=== PATIENT | female | born 1995 | race Caucasian/White ===

== ENCOUNTER 2017-03-11 20:12 | Emergency (ER) | payer OTHER ==
[~2017-03-11] VITALS: Ht 175.3 cm; Wt 61.2 kg
[~2017-03-11 20:12] MED LIST: PREDPOW63 PO
[2017-03-11 20:14] VITALS: Ht 175.3 cm; Wt 61.2 kg
[2017-03-11] MEDS ORDERED: ONDANSETRON INJ 2 MG/ML 2 ML VIAL IV STA (21:24)
[2017-03-11] MEDS ORDERED: SODIUM CHLORIDE 0.9% 1000ML 2,000 ML IV STA (21:24)
[2017-03-11] MEDS ORDERED: MoRPHine SULFATE 10 MG/ML CARP/VIAL IV STA (21:24)
[2017-03-11] MEDS ORDERED: ACETAMINOPHEN IV 100 ML IV STA (21:24)
--- NOTE | 2017-03-11 21:27 | EMERGENCY ROOM VISIT NOTE ---
History Report prepared by Celestina: Carolyn Cano Under the Supervision of: Dr. Kiet Bhatti M.D. First contact with patient: 21:18 Chief Complaint: ABDOMINAL PAIN Stated Complaint: PAIN IN LRQ, FEVER, CHILLS Nursing Triage Summary: Patient states "I've been sick for the past couple days with fever, chills, and nausea. I just started getting pains in my lower right abdomen." History of Present Illness The patient is a 21 year old female who presents to the Emergency Room with complaints of intermittent, sharp abdominal pain that started just [employer]. She states this pain is located by her belly button and on the right side of her abdomen. She rates her pain an 8/10 in intensity. The patient notes that she has been sick for the past couple days. Symptoms include fevers, chills, and nausea. Source of History: patient Onset: [employer]PER[employer] Position: abdomen Symptom Intensity: 8/10 Quality: sharp Timing: intermittent Modifying Factors (Relieving): other (None) Associated Symptoms: + chills, + fevers, + nausea Review of Systems See HPI for pertinent positives & negatives. A total of 10 systems reviewed and were otherwise negative. Past Medical & Surgical Medical Problems: (1) No chronic problems Family History No significant family history Social History Smoking Status: Never Smoker Alcohol Use: occasionally Drug Use: none Marital Status: single Housing Status: lives with roommate Occupation Status: [employer] student Current/Historical Medications No Active Prescriptions or Reported Meds Allergies Coded Allergies: Cefprozil (Verified Allergy, Unknown, hives, 03/11/17) Rabbit Epithelium (Verified Allergy, Unknown, ., 03/11/17) Physical Exam Vital Signs Date Time Temp Pulse Resp B/P Pulse Ox O2 Delivery O2 Flow Rate FiO2 03/12/17 01:09 76 16 118/81 96 03/12/17 00:23 37.0 03/12/17 00:00 73 16 117/60 97 Room Air 03/11/17 21:56 107 20 122/68 94 03/11/17 20:14 38.2 135 16 107/72 96 Room Air Physical Exam GENERAL: Patient is dehydrated and uncomfortable appearing. HEENT: No acute trauma, normocephalic atraumatic, mucous membranes dry, no nasal congestion, no scleral icterus. NECK: No stridor, no adenopathy, no meningismus, trachea is midline. LUNGS: No dyspnea. Clear to auscultation and equal bilaterally. No wheeze, no rhonchi. HEART: Regular rate and rhythm. No murmurs, rubs, gallops appreciated. ABDOMEN: Moderate tenderness to palpation of right lower quadrants, mild tenderness over left lower quadrant, hyperactive bowel sounds, no masses appreciated, no peritonitis. BACK: No midline tenderness, no CVA tenderness EXTREMITIES: Normal motion all extremities, no cyanosis, no edema. NEUROLOGIC: Alert and oriented, no acute motor or sensory deficits, no focal weakness, cranial nerves grossly intact. SKIN: No rash, no jaundice, no diaphoresis. Medical Decision & Procedures ER Provider Diagnostic Interpretation: CT results stated below per my review and radiologist interpretation: ABDOMEN AND PELVIS CT WITH IV CONTRAST CT DOSE: 283.72 mGy.cm HISTORY: Right lower quadrant pain. Fever. TECHNIQUE: Multiaxial CT images of the abdomen and pelvis were performed following the use of intravenous contrast. COMPARISON STUDY: None. FINDINGS: The appendix difficult to identify but appears to be located within the right lower quadrant on images 277 through 299. The appendix is small in caliber measuring up to 2 mm. No periappendiceal fat stranding. Trace pelvic free fluid which is likely physiologic. The lung bases are clear. No pneumoperitoneum. No pneumatosis. No fractures within the visualized osseous structures. The liver, gallbladder, spleen, adrenal glands, pancreas, and kidneys are unremarkable. No hydronephrosis. No retroperitoneal lymphadenopathy. The bladder, uterus, and right ovary are unremarkable. There is a 2.3 cm left ovarian cyst. Suboptimal evaluation for bowel pathology due to the lack of oral contrast. However, there is no definite bowel wall thickening or obstruction. A fluid-filled colon. There are few nondilated fluid-filled loops of small bowel within the midabdomen. IMPRESSION: 1. The appendix is difficult to identify but appears to be located within the Laboratory Results 03/11/17 21:35 Red Blood Count 4.40, Mean Corpuscular Volume 93.2, Mean Corpuscular Hemoglobin 31.8, Mean Corpuscular Hemoglobin Concent 34.1, Mean Platelet Volume 9.7, Neutrophils (%) (Auto) 82.7, Lymphocytes (%) (Auto) 7.6, Monocytes (%) (Auto) 9.0, Eosinophils (%) (Auto) 0.0, Basophils (%) (Auto) 0.2, Neutrophils # (Auto) 14.53, Lymphocytes # (Auto) 1.34, Monocytes # (Auto) 1.59, Eosinophils # (Auto) 0.00, Basophils # (Auto) 0.04 03/11/17 21:35 Test 03/11/17 21:15 03/11/17 21:20 03/11/17 21:35 03/11/17 21:41 Urine Color DK YELLOW Urine Appearance CLEAR (CLEAR) Urine pH 5.0 (4.5-7.5) Urine Specific [place] 1.025 (1.000-1.030) Urine Protein 1+ (NEG) Urine Glucose (UA) NEG (NEG) Urine Ketones 1+ (NEG) Urine Occult Blood 3+ (NEG) Urine Nitrite NEG (NEG) Urine Bilirubin NEG (NEG) Urine Urobilinogen NEG (NEG) Urine Leukocyte Esterase TRACE (NEG) Urine WBC (Auto) 5-10 /hpf (0-5) Urine RBC (Auto) 5-10 /hpf (0-4) Urine Hyaline Casts (Auto) 5-10 /lpf (0-5) Urine Epithelial Cells (Auto) >30 /lpf (0-5) Urine Bacteria (Auto) NEG (NEG) Urine Test NEG (NEG) Influenza Type A Antigen Neg for Influ A (NEG) Influenza Type B Antigen Neg for Influ B (NEG) White Blood Count 17.58 K/uL (4.8-10.8) Red Blood Count 4.40 M/uL (4.2-5.4) Hemoglobin 14.0 g/dL (12.0-16.0) Hematocrit 41.0 % (37-47) Mean Corpuscular Volume 93.2 fL (80-100) Mean Corpuscular Hemoglobin 31.8 pg (25-34) Mean Corpuscular Hemoglobin Concent 34.1 g/dl (32-36) Platelet Count 255 K/uL (130-400) Mean Platelet Volume 9.7 fL (7.4-10.4) Neutrophils (%) (Auto) 82.7 % Lymphocytes (%) (Auto) 7.6 % Monocytes (%) (Auto) 9.0 % Eosinophils (%) (Auto) 0.0 % Basophils (%) (Auto) 0.2 % Neutrophils # (Auto) 14.53 K/uL (1.4-6.5) Lymphocytes # (Auto) 1.34 K/uL (1.2-3.4) Monocytes # (Auto) 1.59 K/uL (0.11-0.59) Eosinophils # (Auto) 0.00 K/uL (0-0.5) Basophils # (Auto) 0.04 K/uL (0-0.2) RDW Standard Deviation 43.1 fL (36.4-46.3) RDW Coefficient of Variation 12.6 % (11.5-14.5) Immature Granulocyte % (Auto) 0.5 % Immature Granulocyte # (Auto) 0.08 K/uL (0.00-0.02) Est Creatinine Clear Calc Drug Dose 86.0 ml/min Estimated GFR () 93.3 Estimated GFR (Non- 80.5 BUN/Creatinine Ratio 9.9 (10-20) Calcium Level 9.1 mg/dl (8.5-10.1) Total Bilirubin 0.4 mg/dl (0.2-1) Direct Bilirubin 0.1 mg/dl (0-0.2) Aspartate Amino Transf (AST/SGOT) 16 U/L (15-37) Alanine Aminotransferase (ALT/SGPT) 19 U/L (12-78) Alkaline Phosphatase 78 U/L (45-117) Total Protein 8.8 gm/dl (6.4-8.2) Albumin 3.6 gm/dl (3.4-5.0) Lipase 131 U/L (73-393) Bedside Hemoglobin 14.3 g/dl (12.0-16.0) Bedside Hematocrit 42 % (37-47) Bedside Sodium 135 mEq/L (135-144) Bedside Potassium 3.5 mEq/L (3.3-5.0) Bedside Chloride 96 mEq/L (101-112) Bedside Total CO2 24 mEq/l (24-31) Anion Gap 19.0 mmol/L (16-25) Bedside Blood Urea Nitrogen 10 mg/dl (7-18) Bedside Creatinine 0.9 mg/dl (0.6-1.3) Bedside Glucose (other) 108 mg/dl (70-99) Bedside Ionized Calcium (Anderson) 1.09 mmol/l (1.12-1.32) Laboratory results as reviewed by me. Medications Administered Medications (Trade) Dose Ordered Sig/Carissa Route Start Time Stop Time Status Last Admin Dose Admin Acetaminophen (Ofirmev Iv) 100 ml @ 400 mls/hr NOW STAT IV 03/11/17 21:24 03/11/17 21:38 DC 03/11/17 21:42 400 MLS/HR Ondansetron HCl (Zofran Inj) 4 mg NOW STAT IV 03/11/17 21:24 03/11/17 21:26 DC 03/11/17 21:43 4 MG Morphine Sulfate 6 mg 6 mg NOW STAT IV 03/11/17 21:24 03/11/17 21:26 DC 03/11/17 21:43 6 MG Sodium Chloride (Nss 1000ml) 2,000 ml @ 999 mls/hr Q2H1M STAT IV 03/11/17 21:24 03/11/17 23:24 DC 03/11/17 21:42 999 MLS/HR ED Course 2118: The patient was evaluated in room A4. A complete history and physical exam was performed. 4: Ordered Sodium Chloride 2,000 ml @ 999 mls/hr IV, Morphine Sulfate 6 mg IV , Zofran Injection 4 mg IV, Acetaminophen 100 ml @ 400 mls/hr Protocol IV. 2308: Upon reevaluation, the patient is feeling better. 0045: Ordered Ondansetron HCL 1 homepack PO. 0037: Reevaluated the patient. She feels better and would like to go home. Discussed results and discharge instructions: She verbalized understanding and agreement. The patient is ready for discharge. Medical Decision Differential: Appendicitis, , MSK, Diverticulitis, UTI, Renal Colic, Bowel Obstruction, Aortic Pathology, amongst other pathologies entertained. 21 yr old dehydrated uncomfortable appearing female arrives with nausea, anorexia, fevers, wbc elevation and modest RLQ TTP. Tachycardia likely fever/ dehydration related and improved with antipyretics and fluids. CT done given multiple findings concerning for appendicitis. CT with normal appearance appendix. There is evidence of gastroenteritis without bowel obstruction. Patient feeling vastly improved and looking much better. Abdomen much improved. She does not have surgical abdomen. She is comfortable with discharge. No UTI symptoms and UA clear of infection. Denies vaginal discharge issues and I do not feel this represents PID/TOA. Made clear the plan to RTED in 12-24 hours if worsening/no improvement, earlier if significant worsening. Discussed left ovarian cyst, which I do not believe is the cause of her symptoms. Stable and discharged with roommate. Impression Primary Impression: Right lower quadrant abdominal pain Additional Impressions: Fever Dehydration Ovarian cyst, left Scribe Attestation The scribe's documentation has been prepared under my direction and personally reviewed by me in its entirety. I confirm that the note above accurately reflects all work, treatment, procedures, and medical decision making performed by me. Departure Information Dispostion Home / Self-Care Prescriptions No Active Prescriptions or Reported Meds Referrals [facility] Forms HOME CARE DOCUMENTATION FORM, IMPORTANT VISIT INFORMATION Patient Instructions ED Gastroenteritis Viral, My [facility] Additional Instructions Return in 12 - 24 hours if worsening or other concerns. Problem Qualifiers Additional Impressions: Fever Fever type: unspecified Qualified Codes: R50.9 - Fever, unspecified
[2017-03-11] MEDS ORDERED: OPTIRAY 320 IV PRN (21:30)
[2017-03-11 21:42] LABS: URINE APPEARANCE CLEAR (CLEAR); URINE BILIRUBIN NEG (NEG); URINE COLOR DK YELLOW; URINE EPITHELIAL CELL AUTO >30 /lpf (0-5); URINE NITRITE NEG (NEG); URINE SPECIFIC GRAVITY 1.025 (1.000-1.030); UROBILINOGEN NEG (NEG); ZZUR CULT IF INDIC CLEAN CATCH NO
[2017-03-11 21:43] LABS: MANUAL MICROSCOPIC REQUIRED? NO; REVIEW REQ? YES
[2017-03-11 21:45] LABS: MEAN CELL VOLUME 93.2 fL (80-100); MEAN CORPUSCULAR HEMOGLOBIN 31.8 pg (25-34); MEAN CORPUSCULAR HGB CONC 34.1 g/dl (32-36); MEAN PLATELET VOLUME 9.7 fL (7.4-10.4); PLATELET COUNT 255 K/uL (130-400); WHITE BLOOD COUNT 17.58 K/uL (4.8-10.8)
[2017-03-11 21:54] LABS: ISTAT CREATININE 0.9 mg/dl (0.6-1.3); ISTAT HEMOGLOBIN 14.3 g/dl (12.0-16.0); ISTAT IONIZED CALCIUM 1.09 mmol/l (1.12-1.32)
[2017-03-11 22:02] LABS: BASO % 0.2 %; BASO ABS # 0.04 K/uL (0-0.2); COMPLETE YES; IG% 0.5 %; LYMPH % 7.6 %; LYMPH ABS # 1.34 K/uL (1.2-3.4); NEUT % 82.7 %
[2017-03-11 22:04] LABS: BUN/CREATININE RATIO 9.9 (10-20); POTASSIUM 3.5 mmol/L (3.5-5.1)
[2017-03-11 22:27] LABS: CALCIUM 9.1 mg/dl (8.5-10.1)
--- NOTE | 2017-03-11 22:49 | DIAGNOSTIC IMAGING REPORT ---
ABDOMEN AND PELVIS CT WITH IV CONTRAST CT DOSE: 283.72 mGy.cm HISTORY: Right lower quadrant pain. Fever. TECHNIQUE: Multiaxial CT images of the abdomen and pelvis were performed following the use of intravenous contrast. COMPARISON STUDY: None. FINDINGS: The appendix difficult to identify but appears to be located within the right lower quadrant on images 277 through 299. The appendix is small in caliber measuring up to 2 mm. No periappendiceal fat stranding. Trace pelvic free fluid which is likely physiologic. The lung bases are clear. No pneumoperitoneum. No pneumatosis. No fractures within the visualized osseous structures. The liver, gallbladder, spleen, adrenal glands, pancreas, and kidneys are unremarkable. No hydronephrosis. No retroperitoneal lymphadenopathy. The bladder, uterus, and right ovary are unremarkable. There is a 2.3 cm left ovarian cyst. Suboptimal evaluation for bowel pathology due to the lack of oral contrast. However, there is no definite bowel wall thickening or obstruction. A fluid-filled colon. There are few nondilated fluid-filled loops of small bowel within the midabdomen. IMPRESSION: 1. The appendix is difficult to identify but appears to be located within the right lower quadrant. No CT evidence for acute appendicitis. However, if the patient symptoms continue to progress, then a repeat abdomen and pelvis CT with intravenous and oral contrast is recommended. 2. Fluid-filled colon. This can be seen in the setting of a gastroenteritis. 3. A 2.3 cm left ovarian cyst. Electronically signed by: Pee Lara M.D. 03/11/2017 10:47 PM Dictated Date/Time: 03/11/2017 10:35 PM
[2017-03-12 00:23] VITALS: TEMP 37
[2017-03-12] MEDS ORDERED: ONDANSETRON HOME PACK 4MG OD TAB PO ONE (00:45)
[2017-03-12 01:09] VITALS: BP 118/81; PULSE 76; O2SAT 96
== END 2017-03-12 01:10 | disposition home or self-care (01) ==
LOC: C.EDB 20:13 → C.EDA 03-12 01:10
DX: R10.31 Right lower quadrant pain (principal); R50.9 Fever, unspecified; E86.0 Dehydration; R11.0 Nausea; N83.202 Unspecified ovarian cyst, left side